=== PATIENT | female | born 1965 | race Caucasian/White ===

== ENCOUNTER 2016-07-26 20:08 | Emergency (ER) | payer OTHER | END 2016-07-26 23:00 | disposition home or self-care (01) | LOC: ER1 20:08 | DX: S46.912A Strain of unspecified muscle, fascia and tendon at shoulder and upper arm level, left arm, initial encounter (principal); F17.200 Nicotine dependence, unspecified, uncomplicated; Z88.2 Allergy status to sulfonamides; X58.XXXA Exposure to other specified factors, initial encounter | CPT/HCPCS: 73030; 73080; 93005; 99283 ==

== ENCOUNTER → 2021-10-08 | Outpatient (CLI) | payer OTHER ==
[~2021-10-08] MED LIST: ASPIR 8181 MG PO; FENOFIBRATE145 MG PO; FLUZONE QU60 MCG/015 IM; PROBIOTIC1 EAC1 PO; SPIRIVA18 MCG INH; SYNTHROID50 MCG PO; TRAZODONE HCL100 MG PO; VANCOMYCIN HCL125 MG PO; VANCOMYCIN HCL250 MG PO; VIIBRYD40 MG PO
[2021-10-08 09:56] LABS: RED BLOOD COUNT 4.23 M/UL (4.00-5.10); WHITE BLOOD COUNT 11.9 K/UL (4.5-11.0)
[2021-10-08 10:27] LABS: BUN/CREATININE RATIO 12 (0-10)
== END ==
LOC: LAB 09:17
PROVIDERS: Nurse Practitioner Family
DX: I10 Essential (primary) hypertension (principal); E53.8 Deficiency of other specified B group vitamins; R79.89 Other specified abnormal findings of blood chemistry
CPT/HCPCS: 80053; 80061; 82607; 84439; 84443; 85025